=== PATIENT | female | born 1970 | race Asian ===

== ENCOUNTER 2017-06-18 07:15 | Inpatient (IN) | payer MEDICAID ==
[~2017-06-18] VITALS: Ht 160 cm; Wt 90.7 kg
[2017-06-18 07:15] VITALS: BP 116/80
--- NOTE | 2017-06-18 07:56 | Emergency Room Report ---
History of Present Illness General Chief Complaint: Lower Extremity Injury Source: Patient Present Illness HPI Patient states she has "floppy" ankles. She normally uses a walker to walk. She states she has difficulty with balance and falls a lot. She states that she fell yesterday and twisted her right ankle. She states that she has a lot of pain in this ankle and is unable to bear weight on it. She denies any other injuries or complaints. She denies head injury or trauma. When I inquired on the bruising that is on her bilateral knees she states she believes is from a few days ago when she fell on her knees. She denies knee pain. She has no other complaints. Allergies: Coded Allergies: LEVOFLOXACIN (Unverified Allergy, Severe, Itching, 06/18/17) Patient History Past Medical History: see triage record, DM, HTN, psych hx - Bipolar, anxiety, depression Social History: Denies: alcohol use, drug use, smoking Last Menstrual Period: depo Now: No Reviewed Nursing Documentation: PMH: Agreed, PSxH: Agreed Nursing Documentation-PMH Past Medical History: No History, Except For Hx Cardiac Problems: Yes Hx Hypertension: Yes Hx Diabetes: Yes History Of Psychiatric Problem: Yes - bipolar Review of Systems All Other Systems: negative except mentioned in HPI Physical Exam Vital Signs Date Time Temp Pulse Resp B/P Pulse Ox O2 Delivery O2 Flow Rate FiO2 06/18/17 07:09 98.2 90 18 116/80 98 Room Air Sp02 EP Interpretation: reviewed, normal General Appearance: no apparent distress, alert, GCS 15, non-toxic Head: normocephalic, atraumatic Eyes: bilateral eye PERRL, bilateral eye normal inspection ENT: hearing grossly normal, normal pharynx, no angioedema, normal voice Neck: full range of motion, supple/symm/no masses Respiratory: chest non-tender, lungs clear, normal breath sounds, speaking full sentences Cardiovascular #1: regular rate, rhythm, no edema Gastrointestinal: normal bowel sounds, non tender, soft, non-distended, no guarding, no rebound Rectal: deferred Musculoskeletal: back normal, normal range of motion, swelling - R. ankle/ foot. +pain w/ ROM of R. foot. Neurologic: alert, oriented x3, responsive, motor strength/tone normal, sensory intact, speech normal Psychiatric: judgement/insight normal, memory normal, mood/affect normal, no suicidal/homicidal ideation Skin: warm/dry, well hydrated, other - Scattered bruises bilateral arms. Scattered ecchymosis on abdomen c/w insulin injection sites. Ecchymosis on BL knees anteriorly [id number]. Medical Decision Making Diagnostic Impression: Primary Impression: Ankle sprain Additional Impression: Foot fracture ER Course This patient has a clinical presentation consistent with ankle sprain. The patient did have significant tenderness and an antalgic gait so I obtained imaging which showed an acute fx at the base of the [facility] [place]. Patient was unable to ambulate without any assistance. She was unable to ambulate unassisted. I am also concerned about the multiple falls in this patient and she may be an unsafe living situation. She has multiple bruises on her legs and knees and arms. She states that she does have a history of falling and difficulty with her gait. This patient may need placement in a halfway facility. She is admitted because she is unable to ambulate or care for herself. Labs Test 06/18/17 08:30 White Blood Count 12.5 K/UL (4.8-10.8) Red Blood Count 3.56 M/UL (4.20-5.40) Hemoglobin 11.1 G/DL (12.0-16.0) Hematocrit 34.8 % (37.0-47.0) Mean Corpuscular Volume 98 FL (80-99) Mean Corpuscular Hemoglobin 31.1 PG (27.0-31.0) Mean Corpuscular Hemoglobin Concent 31.8 G/DL (32.0-36.0) Red Cell Distribution Width 14.1 % (11.6-14.8) Platelet Count 373 K/UL (150-450) Mean Platelet Volume 6.9 FL (6.5-10.1) Neutrophils (%) (Auto) 67.3 % (45.0-75.0) Lymphocytes (%) (Auto) 23.7 % (20.0-45.0) Monocytes (%) (Auto) 6.7 % (1.0-10.0) Eosinophils (%) (Auto) 1.7 % (0.0-3.0) Basophils (%) (Auto) 0.7 % (0.0-2.0) Prothrombin Time 9.4 SEC (9.30-11.50) Prothromb Time International Ratio 0.9 (0.9-1.1) Activated Partial Thromboplast Time 26 SEC (23-33) Sodium Level 140 mEQ/L (135-145) Potassium Level 3.8 mEQ/L (3.4-4.9) Chloride Level 103 mEQ/L (98-107) Carbon Dioxide Level 21 mEQ/L (20-30) Anion Gap 16 (5-15) Blood Urea Nitrogen 20 mg/dL (7-23) Creatinine 0.8 mg/dL (0.5-0.9) Estimat Glomerular Filtration Rate > 60 mL/min (>60) Glucose Level 58 mg/dL (74-106) Calcium Level 9.6 mg/dL (8.6-10.2) Total Bilirubin 0.3 mg/dL (0.0-1.2) Aspartate Amino Transf (AST/SGOT) 15 U/L (5-40) Alanine Aminotransferase (ALT/SGPT) 9 U/L (3-33) Alkaline Phosphatase 83 U/L (35-104) Total Protein 7.4 g/dL (6.6-8.7) Albumin 3.6 g/dL (3.5-5.2) Globulin 3.8 g/dL Albumin/Globulin Ratio 0.9 (1.0-2.7) Other X-Ray Diagnostic Results Other X-Ray Diagnostic Results : X-Ray ordered: R. Ankle # of Views/Limited Vs Complete: Complete Indication: Other - Trauma Interpretation: no dislocation, no soft tissue swelling, no fractures Impression: No acute disease Interpreting ER Provider: Max Last Vital Signs Date Time Temp Pulse Resp B/P Pulse Ox O2 Delivery O2 Flow Rate FiO2 06/18/17 07:15 98.2 90 18 116/80 98 Room Air Disposition: ADMITTED INPATIENT Condition: Stable Referrals: NOT CHOSEN IPA/,REFERRING (PCP) LEATHA ADKINS D.O. Jun 18, 2017 07:56
[2017-06-18 09:01] LABS: BASOPHILS % (AUTO) 0.7 % (0.0-2.0); EOSINOPHILS % (AUTO) 1.7 % (0.0-3.0); LYMPHOCYTES % (AUTO) 23.7 % (20.0-45.0); MEAN CORPUSCULAR HEMOGLOBIN 31.1 PG (27.0-31.0); MEAN CORPUSCULAR HGB CONC 31.8 G/DL (32.0-36.0); MEAN CORPUSCULAR VOLUME 98 FL (80-99); MEAN PLATELET VOLUME 6.9 FL (6.5-10.1); MONOCYTES % (AUTO) 6.7 % (1.0-10.0); NEUTROPHILS % (AUTO) 67.3 % (45.0-75.0); PLATELET COUNT 373 K/UL (150-450); RED BLOOD COUNT 3.56 M/UL (4.20-5.40); RED CELL DISTRIBUTION WIDTH 14.1 % (11.6-14.8); WHITE BLOOD COUNT 12.5 K/UL (4.8-10.8)
[2017-06-18 09:06] LABS: INR 0.9 (0.9-1.1); PROTHROMBIN TIME 9.4 SEC (9.30-11.50)
[2017-06-18 09:12] LABS: ALANINE AMINOTRANSFERASE 9 U/L (3-33); ALBUMIN/GLOBULIN RATIO 0.9 (1.0-2.7); ANION GAP 16 (5-15); ASPARTATE AMINO TRANSFERASE 15 U/L (5-40); CALCIUM 9.6 mg/dL (8.6-10.2); CARBON DIOXIDE 21 mEQ/L (20-30); CHLORIDE 103 mEQ/L (98-107); CREATININE 0.8 mg/dL (0.5-0.9); GLOMERULAR FILTRATION RATE > 60 mL/min (>60); HEMOLYSIS 13; POTASSIUM 3.8 mEQ/L (3.4-4.9); SODIUM 140 mEQ/L (135-145); TOTAL PROTEIN 7.4 g/dL (6.6-8.7)
[2017-06-18] MEDS ORDERED: UNOBMED (10:08)
[2017-06-18 11:30] VITALS: BP 125/76
--- NOTE | 2017-06-18 11:32 | Diagnostic Imaging Report ---
Indication: Pain right ankle Comparison: None Findings: 3 views of the right ankle obtained. Soft tissue swelling is present. There is no obvious malalignment. The bones are osteopenic. There is a suspected fracture involving the base of the fourth metatarsal. This appears acute. Impression: Suspected acute fracture base of the fourth metatarsal. Soft tissue swelling about the ankle.
[2017-06-18] MEDS ORDERED: Ketorolac 30mg Inj IV ONE (11:45)
[2017-06-18] MEDS ORDERED: LORazepam Inj 2mg/ml 1ml IV PRN (13:00)
[2017-06-18] MEDS ORDERED: Morphine Sulfate 4mg/ml Inj IVP PRN (13:00)
[2017-06-18] MEDS ORDERED: Mylanta II UD 30ml ORAL PRN (13:00)
--- NOTE | 2017-06-18 13:13 | Diagnostic Imaging Report ---
Indication: Pain Comparison: None Findings: 3 views of the right foot were obtained. Bones are osteopenic. There is no obvious fracture. Vascular calcifications are present. There is no obvious malalignment. Soft tissue swelling is present. Impression: Soft tissue swelling. Vascular disease
[2017-06-18] MEDS ORDERED: ZyPREXA Zydis 10mg tab ORAL ONE (13:30)
--- NOTE | 2017-06-18 15:48 | History and Physical ---
History of Present Illness General Date patient seen: Jun 18, 2017 Reason for Hospitalization: Lower Extremity Injury Present Illness HPI 47 year old female with hx DM, HTN, psych, - Bipolar, anxiety, depression presented to ER with intractable pain of her ankle . she states she has "floppy " ankles. She states that she fell yesterday and twisted her right ankle. She has a lot of pain in this ankle and is unable to bear weight on it. Allergies: Coded Allergies: LEVOFLOXACIN (Unverified Allergy, Severe, Itching, 06/18/17) Medication History Miscellaneous Medications Unable to Obtain Medications (Unable To Obtain Meds), (Reported) Patient History Healthcare decision maker Resuscitation status Full Code Advanced Directive on File No Past Medical/Surgical History Past Medical/Surgical History: (1) Diabetes mellitus (2) HTN (hypertension) (3) Depression (4) Gout Review of Systems All Other Systems: negative except mentioned in HPI Physical Exam General Appearance: WD/WN, no apparent distress Lines, tubes and drains: peripheral, central line HEENT: normocephalic, atraumatic Neck: non-tender, normal alignment Respiratory/Chest: chest wall non-tender, lungs clear Cardiovascular/Chest: normal peripheral pulses, normal rate Abdomen: normal bowel sounds, non tender Genitourinary/Rectal: normal genital exam Extremities: normal range of motion, non-tender Last 24 Hour Vital Signs Date Time Temp Pulse Resp B/P Pulse Ox O2 Delivery O2 Flow Rate FiO2 06/18/17 13:38 98.2 90 16 125/76 100 Room Air 06/18/17 11:30 90 16 125/76 100 Room Air 06/18/17 11:25 98.2 06/18/17 09:30 98.2 06/18/17 07:15 98.2 90 18 116/80 98 Room Air 06/18/17 07:09 98.2 90 18 116/80 98 Room Air Laboratory Tests Test 06/18/17 08:30 White Blood Count 12.5 K/UL (4.8-10.8) H Red Blood Count 3.56 M/UL (4.20-5.40) L Hemoglobin 11.1 G/DL (12.0-16.0) L Hematocrit 34.8 % (37.0-47.0) L Mean Corpuscular Volume 98 FL (80-99) Mean Corpuscular Hemoglobin 31.1 PG (27.0-31.0) H Mean Corpuscular Hemoglobin Concent 31.8 G/DL (32.0-36.0) L Red Cell Distribution Width 14.1 % (11.6-14.8) Platelet Count 373 K/UL (150-450) Mean Platelet Volume 6.9 FL (6.5-10.1) Neutrophils (%) (Auto) 67.3 % (45.0-75.0) Lymphocytes (%) (Auto) 23.7 % (20.0-45.0) Monocytes (%) (Auto) 6.7 % (1.0-10.0) Eosinophils (%) (Auto) 1.7 % (0.0-3.0) Basophils (%) (Auto) 0.7 % (0.0-2.0) Prothrombin Time 9.4 SEC (9.30-11.50) Prothromb Time International Ratio 0.9 (0.9-1.1) Activated Partial Thromboplast Time 26 SEC (23-33) Sodium Level 140 mEQ/L (135-145) Potassium Level 3.8 mEQ/L (3.4-4.9) Chloride Level 103 mEQ/L (98-107) Carbon Dioxide Level 21 mEQ/L (20-30) Anion Gap 16 (5-15) H Blood Urea Nitrogen 20 mg/dL (7-23) Creatinine 0.8 mg/dL (0.5-0.9) Estimat Glomerular Filtration Rate > 60 mL/min (>60) Glucose Level 58 mg/dL (74-106) L Calcium Level 9.6 mg/dL (8.6-10.2) Total Bilirubin 0.3 mg/dL (0.0-1.2) Aspartate Amino Transf (AST/SGOT) 15 U/L (5-40) Alanine Aminotransferase (ALT/SGPT) 9 U/L (3-33) Alkaline Phosphatase 83 U/L (35-104) Total Protein 7.4 g/dL (6.6-8.7) Albumin 3.6 g/dL (3.5-5.2) Globulin 3.8 g/dL Albumin/Globulin Ratio 0.9 (1.0-2.7) L Height (Feet): 5 Height (Inches): 3.00 Weight (Pounds): 200 Medications Current Medications Medications (Trade) Dose Ordered Sig/Nelda Route PRN Reason Start Time Stop Time Status Last Admin Dose Admin Acetaminophen (Tylenol) 650 mg Q4H PRN ORAL T>100.5 06/18/17 13:00 07/18/17 12:59 Al Hydroxide/Mg Hydroxide (Mylanta II) 30 ml Q6H PRN ORAL dyspepsia 06/18/17 13:00 07/18/17 12:59 Dextrose (Dextrose 50%) STAT PRN IV Hypoglycemia 06/18/17 13:00 07/18/17 12:59 Heparin Sodium (Porcine) (Heparin 5000 units/ml) 5,000 units EVERY 12 HOURS SUBQ 06/18/17 21:00 07/18/17 20:59 Lorazepam (Ativan 2mg/ml 1ml) 0.5 mg Q4H PRN IV For Anxiety 06/18/17 13:00 06/25/17 12:59 Morphine Sulfate (Morphine Sulfate) 2 mg Q4H PRN IVP Moderate Pain (Pain Scale 4-6) 06/18/17 13:00 06/25/17 12:59 Morphine Sulfate (Morphine Sulfate) 4 mg Q4H PRN IVP Severe Pain (Pain Scale 7-10) 06/18/17 13:00 06/25/17 12:59 Ondansetron HCl (Zofran) 4 mg Q6H PRN IVP Nausea & Vomiting 06/18/17 13:00 07/18/17 12:59 Polyethylene Glycol (Miralax) 17 gm HSPRN PRN ORAL Constipation 06/18/17 21:00 07/18/17 20:59 Zolpidem Tartrate (Ambien) 5 mg HSPRN PRN ORAL Insomnia 06/18/17 21:00 07/18/17 20:59 Assessment/Plan Problem List: (1) Intractable pain ICD Codes: R52 - Pain, unspecified SNOMED: 13103713 (2) Morbid obesity ICD Codes: E66.01 - Morbid (severe) obesity due to excess calories SNOMED: 841646135, 96476615523081 (3) HTN (hypertension) ICD Codes: I10 - Essential (primary) hypertension SNOMED: 80582265 (4) Depression ICD Codes: F32.9 - Major depressive disorder, single episode, unspecified SNOMED: 38562279 (5) Gout ICD Codes: M10.9 - Gout, unspecified SNOMED: 85636824 (6) Diabetes mellitus ICD Codes: E11.9 - Type 2 diabetes mellitus without complications SNOMED: 52394689 (7) Foot fracture ICD Codes: S92.909A - Unspecified fracture of unspecified foot, initial encounter for closed fracture SNOMED: 86390585 (8) Ankle sprain ICD Codes: S93.409A - Sprain of unspecified ligament of unspecified ankle, initial encounter SNOMED: 37683879 Assessment/Plan pain management pt/ot might need placement sliding scale, diabetic diet. RED ALBERT Jun 18, 2017 15:48
[2017-06-18] MEDS ORDERED: PERCOCET 10-321 EACH ORAL (15:52)
[2017-06-18] MEDS ORDERED: LAMICTAL100 MG ORAL (15:52)
[2017-06-18] MEDS ORDERED: PAROXETINE HCL20 MG PO (15:52)
[2017-06-18] MEDS ORDERED: MELOXICAM15 MG PO (15:52)
[2017-06-18] MEDS ORDERED: CATAPRES0.2 MG ORAL (15:52)
[2017-06-18] MEDS ORDERED: NOVOLOG100 UNIT/3 SUBQ (15:52)
[2017-06-18] MEDS ORDERED: GEODON40 MG ORAL (15:52)
[2017-06-18] MEDS ORDERED: VASOTEC10 MG ORAL (15:52)
[2017-06-18] MEDS ORDERED: LANTUS SOL100 UNIT/1 SUBQ (15:52)
[2017-06-18 16:00] VITALS: BP_SYST 144; BP_SYST 158; BP_DIAS 74; BP_DIAS 88
[2017-06-18] MEDS: cloNIDine 0.2mg Tab ORAL SCH (18:00)
[2017-06-18 20:00] VITALS: BP 155/84
[2017-06-18] MEDS: Heparin 5000 units/ml inj SUBQ SCH (20:46)
[2017-06-18] MEDS: NovoLOG Insulin Flexpen SUBQ SCH (20:47)
[2017-06-18] MEDS ORDERED: Miralax 17gm pkt ORAL PRN (21:00)
[2017-06-18] MEDS ORDERED: Zolpidem 5mg tab ORAL PRN (21:00)
[2017-06-18] MEDS: PARoxetine 20mg tab ORAL SCH (21:23)
[2017-06-18 21:25] VITALS: BP 112/64
[2017-06-19] VITALS: BP 161/90
[2017-06-19] MEDS: cloNIDine 0.2mg Tab ORAL SCH ×5 (00:10→23:21)
[2017-06-19] MEDS: Morphine Sulfate 2mg/ml Inj IVP PRN ×5 (00:15→20:31)
[2017-06-19 04:00] VITALS: BP 120/63
[2017-06-19 04:47] LABS: BASOPHILS % (AUTO) 0.7 % (0.0-2.0); EOSINOPHILS % (AUTO) 2.1 % (0.0-3.0); MEAN CORPUSCULAR HEMOGLOBIN 31.8 PG (27.0-31.0); MEAN CORPUSCULAR HGB CONC 32.9 G/DL (32.0-36.0); MEAN CORPUSCULAR VOLUME 97 FL (80-99); MEAN PLATELET VOLUME 6.7 FL (6.5-10.1); MONOCYTES % (AUTO) 4.9 % (1.0-10.0); NEUTROPHILS % (AUTO) 60.3 % (45.0-75.0); PLATELET COUNT 340 K/UL (150-450); RED BLOOD COUNT 3.01 M/UL (4.20-5.40); RED CELL DISTRIBUTION WIDTH 13.8 % (11.6-14.8)
[2017-06-19 05:04] LABS: ALANINE AMINOTRANSFERASE 8 U/L (3-33); ALBUMIN/GLOBULIN RATIO 1.1 (1.0-2.7); ANION GAP 9 (5-15); ASPARTATE AMINO TRANSFERASE 11 U/L (5-40); CALCIUM 8.6 mg/dL (8.6-10.2); CARBON DIOXIDE 26 mEQ/L (20-30); CHLORIDE 107 mEQ/L (98-107); CREATININE 0.6 mg/dL (0.5-0.9); GLOMERULAR FILTRATION RATE > 60 mL/min (>60); HEMOLYSIS 1; POTASSIUM 3.9 mEQ/L (3.4-4.9); SODIUM 142 mEQ/L (135-145); TOTAL PROTEIN 5.9 g/dL (6.6-8.7)
[2017-06-19 05:15] LABS: THYROID STIMULATING HORMONE 0.853 uIU/mL (0.300-4.500)
[2017-06-19] MEDS: NovoLOG Insulin Flexpen SUBQ SCH ×4 (06:26→20:33)
[2017-06-19 08:54] VITALS: BP 128/79
[2017-06-19] MEDS ORDERED: Meloxicam 15 MG TAB ORAL SCH (09:00)
[2017-06-19] MEDS ORDERED: PARoxetine 20mg tab ORAL SCH (09:00)
[2017-06-19] MEDS: Heparin 5000 units/ml inj SUBQ SCH ×2 (09:01→20:32)
[2017-06-19 12:29] VITALS: BP 130/76
--- NOTE | 2017-06-19 12:57 | Pulmonology Progress Note ---
Assessment/Plan Problems: (1) Intractable pain (2) Morbid obesity (3) HTN (hypertension) (4) Depression (5) Gout (6) Diabetes mellitus (7) Foot fracture (8) Ankle sprain Assessment/Plan pt evaluation noted dc planning to snif pain management Subjective ROS Limited/Unobtainable: No Constitutional: Reports: no symptoms HEENT: Repors: no symptoms Respiratory: Reports: no symptoms Cardiovascular: Reports: no symptoms Gastrointestinal/Abdominal: Reports: no symptoms Allergies: Coded Allergies: LEVOFLOXACIN (Unverified Allergy, Severe, Itching, 06/18/17) Objective Last 24 Hour Vital Signs Date Time Temp Pulse Resp B/P Pulse Ox O2 Delivery O2 Flow Rate FiO2 06/19/17 12:44 130/76 06/19/17 12:29 97.3 80 18 130/76 99 Room Air 06/19/17 12:20 97.3 06/19/17 08:58 128/74 06/19/17 08:54 96.6 76 20 128/79 95 Room Air 06/19/17 06:31 129/72 06/19/17 04:00 98.2 75 18 120/63 99 Room Air 06/19/17 00:10 161/90 06/19/17 00:00 98.5 83 18 161/90 100 Room Air 06/18/17 21:25 82 18 112/64 96 Room Air 06/18/17 20:00 97.4 93 19 155/84 97 Room Air 06/18/17 16:00 97.5 86 20 144/74 98 Room Air 06/18/17 16:00 97.7 96 20 158/88 97 Room Air 06/18/17 13:38 98.2 90 16 125/76 100 Room Air Intake and Output 06/18/17 06/19/17 19:00 07:00 Intake Total 250 ml 150 ml Balance 250 ml 150 ml Intake Oral 250 ml 150 ml # Voids 1 2 # Bowel Movements 1 General Appearance: WD/WN HEENT: normocephalic, atraumatic Respiratory/Chest: chest wall non-tender, normal breath sounds Breasts: no masses Cardiovascular: normal peripheral pulses, normal rate Abdomen: normal bowel sounds, soft, non tender Genitourinary: normal external genitalia Extremities: no clubbing Laboratory Tests 06/19/17 04:05: White Blood Count 9.0, Red Blood Count 3.01L, Hemoglobin 9.5L, Hematocrit 29.0L , Mean Corpuscular Volume 97, Mean Corpuscular Hemoglobin 31.8H, Mean Corpuscular Hemoglobin Concent 32.9, Red Cell Distribution Width 13.8, Platelet Count 340, Mean Platelet Volume 6.7, Neutrophils (%) (Auto) 60.3, Lymphocytes (% ) (Auto) 32.0, Monocytes (%) (Auto) 4.9, Eosinophils (%) (Auto) 2.1, Basophils ( %) (Auto) 0.7, Sodium Level 142, Potassium Level 3.9, Chloride Level 107, Carbon Dioxide Level 26, Anion Gap 9, Blood Urea Nitrogen 15, Creatinine 0.6, Estimat Glomerular Filtration Rate > 60, Glucose Level 90, Calcium Level 8.6, Total Bilirubin 0.4, Aspartate Amino Transf (AST/SGOT) 11, Alanine Aminotransferase (ALT/SGPT) 8, Alkaline Phosphatase 65, Total Protein 5.9L, Albumin 3.2L, Globulin 2.7, Albumin/Globulin Ratio 1.1, Thyroid Stimulating Hormone (TSH) 0.853 Current Medications Medications (Trade) Dose Ordered Sig/Nelda Route PRN Reason Start Time Stop Time Status Last Admin Dose Admin Acetaminophen (Tylenol) 650 mg Q4H PRN ORAL T>100.5 06/18/17 13:00 07/18/17 12:59 Al Hydroxide/Mg Hydroxide (Mylanta II) 30 ml Q6H PRN ORAL dyspepsia 06/18/17 13:00 07/18/17 12:59 Clonidine HCl (Catapres) 0.2 mg Q6HR ORAL 06/18/17 18:00 07/18/17 17:59 06/19/17 12:44 Dextrose (Dextrose 50%) STAT PRN IV Hypoglycemia 06/18/17 13:00 07/18/17 12:59 Enalapril Maleate (Vasotec) 10 mg DAILY ORAL 06/19/17 09:00 07/19/17 08:59 06/19/17 08:58 Heparin Sodium (Porcine) (Heparin 5000 units/ml) 5,000 units EVERY 12 HOURS SUBQ 06/18/17 21:00 07/18/17 20:59 06/19/17 09:01 Insulin Aspart (NovoLOG) BEFORE MEALS AND HS SUBQ 06/18/17 21:00 07/18/17 20:59 06/19/17 11:47 Lamotrigine (LaMICtal) 100 mg DAILY ORAL 06/19/17 09:00 07/19/17 08:59 06/19/17 08:58 Lorazepam (Ativan 2mg/ml 1ml) 0.5 mg Q4H PRN IV For Anxiety 06/18/17 13:00 06/25/17 12:59 Meloxicam (Mobic) 7.5 mg DAILY ORAL 06/19/17 10:00 07/19/17 09:59 06/19/17 09:51 Morphine Sulfate (Morphine Sulfate) 2 mg Q4H PRN IVP Moderate Pain (Pain Scale 4-6) 06/18/17 13:00 06/25/17 12:59 06/19/17 11:50 Morphine Sulfate (Morphine Sulfate) 4 mg Q4H PRN IVP Severe Pain (Pain Scale 7-10) 06/18/17 13:00 06/25/17 12:59 Nicotine (Nicoderm) 1 patch Q24H TDERMAL 06/18/17 22:00 07/18/17 21:59 06/19/17 00:37 Ondansetron HCl (Zofran) 4 mg Q6H PRN IVP Nausea & Vomiting 06/18/17 13:00 07/18/17 12:59 Oxycodone/ Acetaminophen (Percocet 10/325) 1 tab Q6H PRN ORAL FOR MILD PAIN 06/18/17 16:15 06/25/17 16:14 06/18/17 17:11 Paroxetine HCl (Paxil) 20 mg QHS ORAL 06/18/17 21:00 07/18/17 20:59 06/18/17 21:23 Polyethylene Glycol (Miralax) 17 gm HSPRN PRN ORAL Constipation 06/18/17 21:00 07/18/17 20:59 Zolpidem Tartrate (Ambien) 5 mg HSPRN PRN ORAL Insomnia 06/18/17 21:00 07/18/17 20:59 RED ALBERT Jun 19, 2017 12:57
--- NOTE | 2017-06-19 13:10 | Consultation ---
History of Present Illness General Date patient seen: Jun 19, 2017 Chief Complaint: Lower Extremity Injury Present Illness Allergies: Coded Allergies: LEVOFLOXACIN (Unverified Allergy, Severe, Itching, 06/18/17) Medication History Scheduled Clonidine Hcl* (Catapres*), 0.2 MG ORAL Q6HR, (Reported) Enalapril Maleate* (Vasotec*), 10 MG ORAL DAILY, (Reported) Insulin Glargine (Lantus), 0 SUBQ BEDTIME, (Reported) Lamotrigine* (Lamictal*), 100 MG ORAL DAILY, (Reported) Meloxicam* (Meloxicam*), 15 MG PO DAILY, (Reported) Meloxicam* (Meloxicam*), 10 MG PO DAILY, (Reported) Paroxetine Hcl* (Paxil*), 20 MG PO DAILY, (Reported) Ziprasidone Hcl* (Geodon*), 80 MG ORAL DAILY, (Reported) Scheduled PRN Oxycodone Hcl/Acetaminophen 10-325 Mg Tablet (Percocet 10-325 Mg Tablet*), 1 TAB ORAL Q6H PRN for For Pain, (Reported) Miscellaneous Medications Insulin Aspart* (Novolog*), 0 SUBQ, (Reported) Unable to Obtain Medications (Unable To Obtain Meds), (Reported) Patient History Healthcare decision maker Resuscitation status Full Code Advanced Directive on File No Physical Exam Last 24 Hour Vital Signs Date Time Temp Pulse Resp B/P Pulse Ox O2 Delivery O2 Flow Rate FiO2 06/19/17 12:44 130/76 06/19/17 12:29 97.3 80 18 130/76 99 Room Air 06/19/17 12:20 97.3 06/19/17 08:58 128/74 06/19/17 08:54 96.6 76 20 128/79 95 Room Air 06/19/17 06:31 129/72 06/19/17 04:00 98.2 75 18 120/63 99 Room Air 06/19/17 00:10 161/90 06/19/17 00:00 98.5 83 18 161/90 100 Room Air 06/18/17 21:25 82 18 112/64 96 Room Air 06/18/17 20:00 97.4 93 19 155/84 97 Room Air 06/18/17 16:00 97.5 86 20 144/74 98 Room Air 06/18/17 16:00 97.7 96 20 158/88 97 Room Air 06/18/17 13:38 98.2 90 16 125/76 100 Room Air Intake and Output 06/18/17 06/19/17 19:00 07:00 Intake Total 250 ml 150 ml Balance 250 ml 150 ml Intake Oral 250 ml 150 ml # Voids 1 2 # Bowel Movements 1 Laboratory Tests Test 06/19/17 04:05 White Blood Count 9.0 K/UL (4.8-10.8) Red Blood Count 3.01 M/UL (4.20-5.40) L Hemoglobin 9.5 G/DL (12.0-16.0) L Hematocrit 29.0 % (37.0-47.0) L Mean Corpuscular Volume 97 FL (80-99) Mean Corpuscular Hemoglobin 31.8 PG (27.0-31.0) H Mean Corpuscular Hemoglobin Concent 32.9 G/DL (32.0-36.0) Red Cell Distribution Width 13.8 % (11.6-14.8) Platelet Count 340 K/UL (150-450) Mean Platelet Volume 6.7 FL (6.5-10.1) Neutrophils (%) (Auto) 60.3 % (45.0-75.0) Lymphocytes (%) (Auto) 32.0 % (20.0-45.0) Monocytes (%) (Auto) 4.9 % (1.0-10.0) Eosinophils (%) (Auto) 2.1 % (0.0-3.0) Basophils (%) (Auto) 0.7 % (0.0-2.0) Sodium Level 142 mEQ/L (135-145) Potassium Level 3.9 mEQ/L (3.4-4.9) Chloride Level 107 mEQ/L (98-107) Carbon Dioxide Level 26 mEQ/L (20-30) Anion Gap 9 (5-15) Blood Urea Nitrogen 15 mg/dL (7-23) Creatinine 0.6 mg/dL (0.5-0.9) Estimat Glomerular Filtration Rate > 60 mL/min (>60) Glucose Level 90 mg/dL (74-106) Calcium Level 8.6 mg/dL (8.6-10.2) Total Bilirubin 0.4 mg/dL (0.0-1.2) Aspartate Amino Transf (AST/SGOT) 11 U/L (5-40) Alanine Aminotransferase (ALT/SGPT) 8 U/L (3-33) Alkaline Phosphatase 65 U/L (35-104) Total Protein 5.9 g/dL (6.6-8.7) L Albumin 3.2 g/dL (3.5-5.2) L Globulin 2.7 g/dL Albumin/Globulin Ratio 1.1 (1.0-2.7) Thyroid Stimulating Hormone (TSH) 0.853 uIU/mL (0.300-4.500) Height (Feet): 5 Height (Inches): 3.00 Weight (Pounds): 200 Medications Current Medications Medications (Trade) Dose Ordered Sig/Nelda Route PRN Reason Start Time Stop Time Status Last Admin Dose Admin Acetaminophen (Tylenol) 650 mg Q4H PRN ORAL T>100.5 06/18/17 13:00 07/18/17 12:59 Al Hydroxide/Mg Hydroxide (Mylanta II) 30 ml Q6H PRN ORAL dyspepsia 06/18/17 13:00 07/18/17 12:59 Clonidine HCl (Catapres) 0.2 mg Q6HR ORAL 06/18/17 18:00 07/18/17 17:59 06/19/17 12:44 Dextrose (Dextrose 50%) STAT PRN IV Hypoglycemia 06/18/17 13:00 07/18/17 12:59 Enalapril Maleate (Vasotec) 10 mg DAILY ORAL 06/19/17 09:00 07/19/17 08:59 06/19/17 08:58 Heparin Sodium (Porcine) (Heparin 5000 units/ml) 5,000 units EVERY 12 HOURS SUBQ 06/18/17 21:00 07/18/17 20:59 06/19/17 09:01 Insulin Aspart (NovoLOG) BEFORE MEALS AND HS SUBQ 06/18/17 21:00 07/18/17 20:59 06/19/17 11:47 Lamotrigine (LaMICtal) 100 mg DAILY ORAL 06/19/17 09:00 07/19/17 08:59 06/19/17 08:58 Lorazepam (Ativan 2mg/ml 1ml) 0.5 mg Q4H PRN IV For Anxiety 06/18/17 13:00 06/25/17 12:59 Meloxicam (Mobic) 7.5 mg DAILY ORAL 06/19/17 10:00 07/19/17 09:59 06/19/17 09:51 Morphine Sulfate (Morphine Sulfate) 2 mg Q4H PRN IVP Moderate Pain (Pain Scale 4-6) 06/18/17 13:00 06/25/17 12:59 06/19/17 11:50 Morphine Sulfate (Morphine Sulfate) 4 mg Q4H PRN IVP Severe Pain (Pain Scale 7-10) 06/18/17 13:00 06/25/17 12:59 Nicotine (Nicoderm) 1 patch Q24H TDERMAL 06/18/17 22:00 07/18/17 21:59 06/19/17 00:37 Ondansetron HCl (Zofran) 4 mg Q6H PRN IVP Nausea & Vomiting 06/18/17 13:00 07/18/17 12:59 Oxycodone/ Acetaminophen (Percocet 10/325) 1 tab Q6H PRN ORAL FOR MILD PAIN 06/18/17 16:15 06/25/17 16:14 06/18/17 17:11 Paroxetine HCl (Paxil) 20 mg QHS ORAL 06/18/17 21:00 07/18/17 20:59 06/18/17 21:23 Polyethylene Glycol (Miralax) 17 gm HSPRN PRN ORAL Constipation 06/18/17 21:00 07/18/17 20:59 Zolpidem Tartrate (Ambien) 5 mg HSPRN PRN ORAL Insomnia 06/18/17 21:00 07/18/17 20:59 Assessment/Plan Assessment/Plan (1) Fourth metatarsal fracture (2) Foot pain (3) Ankle sprain Seen dictated. MICHELLE CONDON Jun 19, 2017 13:10
[2017-06-19 16:43] VITALS: BP 126/72
[2017-06-19 20:09] VITALS: BP 113/60
[2017-06-19] MEDS: PARoxetine 20mg tab ORAL SCH (20:30)
[2017-06-19] MEDS ORDERED: Levemir Flexpen SUBQ SCH (21:00)
--- NOTE | 2017-06-19 22:00 | Consultation ---
DATE OF CONSULTATION: 06/19/2017 PAIN MANAGEMENT CONSULTATION CONSULTING PHYSICIAN: Benjamín Lopez M.D. REFERRING PHYSICIAN: Ashlee Santos M.D. PHYSICIAN COMPUTER SYSTEMS DESIGNER: Parker Lopez CHIEF COMPLAINT: Right foot pain and ankle pain. HISTORY OF PRESENT ILLNESS: This is a 47-year-old female who is being seen on the Medical/Surgical floor of [facility] for initial comprehensive pain management consultation. The patient reports that she has been having right ankle and foot pain for the past two days. It is kind of acute pain, rating at 9/10, describing as sharp stabbing pain, increased with movement and reduced with medication. The patient explains she twisted her foot and upon admission to the hospital, found on x-ray to have suspected acute fracture at the base of the fourth metatarsal with soft tissue swelling, started on Percocet 10/325 mg every six hours as needed for mild pain and morphine 4 mg IV every four hours as needed for severe pain and morphine 2 mg IV every four hours as needed for mild pain. At this time, the patient on her current medication regimen, which she has been tolerating and reducing her pain, waiting to be seen by orthopedic surgeon at this time. PAST MEDICAL HISTORY: Diabetes mellitus, hypertension, bipolar, and arthritis. PAST SURGICAL HISTORY: Bilateral knee replacement. MEDICATIONS: Catapres, Vasotec, Lantus, meloxicam, Paxil, and Percocet. SOCIAL HISTORY: She is a smoker of tobacco. Denies alcohol or drug abuse. REVIEW OF SYSTEMS: Denies rash, fever, chills, sweating, dizziness, drowsiness, or change in weight. No nausea, vomiting, or blood in the stool or urine. No bowel or bladder incontinence. No dysuria. She has right foot pain. PHYSICAL EXAMINATION: GENERAL: Alert, awake, and oriented x3. VITAL SIGNS: Blood pressure 130/76, heart rate is 80, oxygen saturation 99%, respiratory rate is 18, and temperature is 97.3 degrees Fahrenheit. Height is 5 feet and weight 200 pounds. HEENT: PERRLA. NECK: Range of motion is full in all directions. No tenderness to paracervical muscles. No adenopathy. LUNGS: Decreased breath sounds bilaterally. HEART: S1 and S2, regular. ABDOMEN: Obese. BACK: Range of motion is decreased in flexion and extension with no tenderness to paraspinous muscles, trapezius, or rhomboid muscles. EXTREMITIES: Upper extremity range of motion is full in all directions. Motor is intact. No cyanosis. No clubbing. No edema. Sensory is intact. Reflexes are not obtainable. No adenopathy. Lower extremity motion is decreased due to the patient's condition. Motor is intact with swelling and tenderness noted at the right foot. No cyanosis. No clubbing. Sensory is intact. Reflexes are not obtainable. No adenopathy. ASSESSMENT AND PLAN: This is a 47-year-old female with fourth metatarsal fracture of the right foot, right foot pain, and right ankle sprain. The patient will be continued on the Percocet 10/325 mg every six hours as needed for mild pain and morphine 2 mg IV every four hours as needed for moderate pain. We will discontinue the morphine 4 mg IV. The patient is waiting to be seen by orthopedic surgeon. The patient was discussed with Dr. Lopez and Dr. Lopez concurred. We will follow the patient. Thank you very much for the courtesy of this consultation. Benjamín Lopez M.D. KAE Lopez DR: THEO JOB#: [id number] CC: HUNG
[2017-06-20 00:05] VITALS: BP 106/65
[2017-06-20] MEDS: Morphine Sulfate 2mg/ml Inj IVP PRN ×3 (01:04→10:27)
[2017-06-20 04:30] VITALS: BP 109/65
[2017-06-20] MEDS: NovoLOG Insulin Flexpen SUBQ SCH ×2 (06:24→12:29)
[2017-06-20] MEDS: cloNIDine 0.2mg Tab ORAL SCH ×2 (06:25→12:28)
[2017-06-20 08:00] VITALS: BP 125/76
[2017-06-20] MEDS: Heparin 5000 units/ml inj SUBQ SCH (08:32)
[2017-06-20 12:00] VITALS: BP 127/71
[2017-06-20 12:28] VITALS: BP 125/76
--- NOTE | 2017-06-20 15:22 | Pulmonology Progress Note ---
Assessment/Plan Problems: (1) Intractable pain (2) Morbid obesity (3) HTN (hypertension) (4) Depression (5) Gout (6) Diabetes mellitus (7) Foot fracture (8) Ankle sprain Assessment/Plan pt evaluation noted pt doesn't want to go to a rehab facility she wants to be discharged with a front wheel walker. Subjective ROS Limited/Unobtainable: No Interval Events: pt doesnt want to go to intermediate Allergies: Coded Allergies: LEVOFLOXACIN (Unverified Allergy, Severe, Itching, 06/18/17) Objective Last 24 Hour Vital Signs Date Time Temp Pulse Resp B/P Pulse Ox O2 Delivery O2 Flow Rate FiO2 06/20/17 12:28 125/76 06/20/17 12:00 97.5 62 18 127/71 97 Room Air 06/20/17 10:57 97.5 06/20/17 08:32 125/76 06/20/17 08:00 97.5 71 18 125/76 96 Room Air 06/20/17 06:25 109/65 06/20/17 04:30 97.0 72 18 109/65 97 Room Air 06/20/17 00:05 97.8 67 18 106/65 97 Room Air 06/19/17 23:21 106/67 06/19/17 20:09 98.3 63 18 113/60 98 Room Air 06/19/17 17:23 126/72 06/19/17 16:43 97.5 72 20 126/72 99 Room Air Intake and Output 06/19/17 06/20/17 18:59 06:59 Intake Total 820 ml 240 ml Output Total 200 ml Balance 620 ml 240 ml Intake Oral 820 ml 240 ml Output Urine Total 200 ml # Voids 2 2 # Bowel Movements 1 General Appearance: WD/WN HEENT: normocephalic, atraumatic Respiratory/Chest: chest wall non-tender, lungs clear Cardiovascular: normal peripheral pulses, normal rate Abdomen: normal bowel sounds, soft, non tender Genitourinary: normal external genitalia Extremities: no clubbing Neurologic/Psychiatric: training and development head II-XII grossly normal Lymphatic: no neck adenopathy RED ALBERT Jun 20, 2017 15:22
[2017-06-20] MEDS ORDERED: Levemir Flexpen SUBQ SCH (21:00)
--- NOTE | 2017-06-21 20:04 | Discharge Summary ---
Discharge Summary Hospital Course Date of Admission Jun 18, 2017 at 10:57 Date of Discharge Jun 20, 2017 at 14:07 Admitting Diagnosis ankle sprain HPI Blanche Boyd is a 47 year old female who was admitted on Jun 18, 2017 at 10:57 for Ankle Sprain Hospital Course [id number] Discharge Discharge Disposition Patient was discharged to Home (01) Discharge Diagnoses: Annia Hutson NP Jun 21, 2017 20:04
--- NOTE | 2017-06-21 22:46 | Discharge Summary 2 SIG ---
DATE OF ADMISSION: 06/18/2017 DATE OF DISCHARGE: 06/20/2017 BILINGUAL KINDERGARTEN TEACHER: Benjamín Lopez M.D. BRIEF HOSPITAL COURSE: The patient is a 47-year-old female with history of diabetes mellitus, hypertension, bipolar disorder, anxiety, and depression presented to ED with intractable pain on her ankle and stated that she fell and twisted her right ankle. She was in a lot of pain and unable to bear weight. On evaluation at ED, the patient presented with significant tenderness, antalgic gait, and unable to ambulate without any assistance. X-ray of the right ankle showed no dislocation. No soft tissue swelling. No fractures. However, due to the patient's symptoms, the patient unable to ambulate and care for herself, the patient was admitted to the medical floor for pain management and rehabilitation. She was seen by pain management and was given Percocet and morphine. She underwent physical and occupational therapy. The patient refused to go to a rehabilitation facility and wanted to be discharged with front wheel walker. She will go back to [place], [place]. The patient was then discharged home, transportation was provided by family. FINAL DIAGNOSES: 1. Intractable pain. 2. Morbid obesity. 3. Hypertension. 4. Depression. 5. Gout. 6. Diabetes mellitus. 7. Ankle sprain. DISPOSITION: The patient was discharged home. DISCHARGE MEDICATIONS: Refer to med list. FOLLOWUP: Follow up with PMD in a week. Ashlee Santos M.D. I have been assigned to dictate discharge summary on this account and I was not involved in the patient's management. Annia Hutson N.P. DR: LIZBETH JOB#: [id number] CC: HUNG
== END 2017-06-20 14:07 | disposition home or self-care (01) | DRG 342 ==
LOC: EDBD 07:15 → EMR 07:46 → 3E 10:57 → EDBEDREQ 12:36
DX: S92.341A Displaced fracture of fourth metatarsal bone, right foot, initial encounter for closed fracture (principal); E66.01 Morbid (severe) obesity due to excess calories; I10 Essential (primary) hypertension; S93.401A Sprain of unspecified ligament of right ankle, initial encounter; Z68.35 Body mass index [BMI] 35.0-35.9, adult; F32.9 Major depressive disorder, single episode, unspecified; M10.9 Gout, unspecified; E11.9 Type 2 diabetes mellitus without complications; W19.XXXA Unspecified fall, initial encounter; Z91.81 History of falling; Y92.009 Unspecified place in unspecified non-institutional (private) residence as the place of occurrence of the external cause; F31.9 Bipolar disorder, unspecified; Z96.653 Presence of artificial knee joint, bilateral
CPT/HCPCS: 36415; 80053; 82962; 84443; 85025; 85610; 85730; J1815; S5561